=== PATIENT | female | born 1965 | race Caucasian/White ===

== ENCOUNTER → 2021-12-13 | Outpatient (CLI) | payer MEDICARE ==
[~2021-12-13] MED LIST: CELEBREX100 MG PO; HYDROCHLOROTHIA25 MG PO; LEVOCETIRIZINE D5 MG PO; LIPITOR TAB 1010 MG PO; METFORMIN HCL1000 MG PO; MIRAPEX1 MG PO; NEURONTIN300 MG PO; OMEPRAZOLE40 MG PO; SYNTHROID25 MCG PO; TYLENOL 8 HOUR650 MG PO
[2021-12-13 10:49] LABS: HEMOGLOBIN 11.7 gm/dl (12.3-15.3); RED BLOOD COUNT 4.44 M/UL (4.00-5.10); WHITE BLOOD COUNT 7.5 K/UL (4.5-11.0)
[2021-12-13 11:32] LABS: BUN/CREATININE RATIO 23 (0-10)
== END ==
LOC: OPSV2 09:54 → EDSTATUS 10:00
PROVIDERS: Orthopaedic Surgery
DX: Z01.818 Encounter for other preprocedural examination (principal); M17.12 Unilateral primary osteoarthritis, left knee
CPT/HCPCS: 80048; 81001; 83036; 85025; 87077; 87086; 87186; 93005

== ENCOUNTER → 2021-12-28 | Day surgery (SDC) | payer MEDICARE, OTHER ==
[~2021-12-28] MED LIST changes: +ASPIR-TRIN325 MG PO; +HYDROCODON-ACE1 EAC2 PO
[2021-12-28 06:58] LABS: BUN/CREATININE RATIO 24 (0-10)
== END | disposition home or self-care (01) ==
LOC: OR 05:28
PROVIDERS: Orthopaedic Surgery
DX: M17.12 Unilateral primary osteoarthritis, left knee (principal); G89.18 Other acute postprocedural pain; I10 Essential (primary) hypertension; E78.5 Hyperlipidemia, unspecified; K21.9 Gastro-esophageal reflux disease without esophagitis; E66.9 Obesity, unspecified; E11.9 Type 2 diabetes mellitus without complications; E03.9 Hypothyroidism, unspecified; Z68.41 Body mass index [BMI] 40.0-44.9, adult; Z79.82 Long term (current) use of aspirin; Z79.84 Long term (current) use of oral hypoglycemic drugs; Z79.891 Long term (current) use of opiate analgesic; Z79.899 Other long term (current) drug therapy
CPT/HCPCS: 73560; 76000; 80048; 82962; 86850; 86900; 86901; 97116; 97161; 97166; C1713; C1776; J0171; J0690; J1100; J1170; J1885; J2001; J2250; J2274; J2405; J2704; J2795; J3010